=== PATIENT | male | born 1980 | race Two or more races ===

== ENCOUNTER 2024-02-23 11:26 | Emergency (ER) | payer MEDICAID ==
[~2024-02-23] VITALS: Ht 175.3 cm; Wt 77.6 kg
[2024-02-23] MEDS: FAMOTIDINE/PF INJ 20 MG/2 ML VIAL IV ONE (12:00)
[2024-02-23] MEDS: diphenhydrAMINE HCL 25 MG CAPSULE PO ONE (12:00)
[2024-02-23] MEDS: methylPREDNISolone SOD SUCC 125 MG/2ML VIAL IV ONE (12:00)
[2024-02-23] MEDS ORDERED: FAMOTIDINE/PF INJ 20 MG/2 ML VIAL IV ONE (12:06)
[2024-02-23] MEDS ORDERED: diphenhydrAMINE HCL 50 MG CAPSULE ONE (12:06)
[2024-02-23] MEDS ORDERED: methylPREDNISolone SOD SUCC 125 MG/2ML VIAL ONE (12:06)
[2024-02-23 12:38] VITALS: BP 135/93; TEMP 98.7; O2SAT 100
== END 2024-02-23 12:39 | disposition left against medical advice (07) ==
LOC: ER 11:33
DX: T78.3XXA Angioneurotic edema, initial encounter (principal); Z60.2 Problems related to living alone
CPT/HCPCS: 99284; 96374; 96375; Q0163; J3490; J2919